=== PATIENT | male | born 1995 | race Caucasian/White ===

== ENCOUNTER 2016-10-29 00:11 | Emergency (ER) | payer SELFPAY ==
[2016-10-29 00:17] VITALS: BMI 23.0
[2016-10-29 00:18] VITALS: TEMP 98.4
--- NOTE | 2016-10-29 00:33 | ED PDOC ---
Arrival/HPI - General Chief Complaint: Trauma Time Seen by Provider: 10/29/16 00:25 Historian: Patient - History of Present Illness Narrative History of Present Illness (Text): 10/29/16 00:27 This 21 yo male is brought to this ED by BLS c/o right lower back pain, and right hip/ thigh pain x [employer]. Patient stated he slipped and [place] local [employer]. Denies head injury, loc, weakness, paresthesia, dizziness, syncope, sob, cp, or abnormal gait. Time/Duration: Prior to Arrival Quality: Aching Context: Other (supermarket.) Past Medical History - Provider Review Nursing Documentation Reviewed: Yes - Psychiatric Hx Substance Use: No Family/Social History - Physician Review Nursing Documentation Reviewed: Yes Family/Social History: No Known Family HX Smoking Status: no Hx Alcohol Use: No Hx Substance Use: No Allergies/Home Meds Allergies/Adverse Reactions: Allergies No Known Allergies Allergy (Verified 10/29/16 00:17) Review of Systems - Review of Systems Constitutional: Normal. absent: Fatigue, Weight Change, Fevers Eyes: Normal ENT: Normal Respiratory: Normal Cardiovascular: Normal Gastrointestinal: Normal. absent: Abdominal Pain, Nausea, Vomiting Genitourinary Male: Normal. absent: Dysuria, Hematuria Musculoskeletal: Normal, Other (Right hip, and right thigh pain). absent: Back Pain, Neck Pain Skin: Normal Neurological: Normal. absent: Headache, Dizziness, Focal Weakness, Gait Changes , Speech Changes, Facial Droop Endocrine: Normal Hemo/Lymphatic: Normal Psychiatric: Normal Physical Exam Vital Signs Temp Pulse Resp BP Pulse Ox 10/29/16 02:03 83 12 119/60 97 10/29/16 00:17 98.4 F 110 H 18 128/71 98 Temperature: Afebrile Blood Pressure: Normal Pulse: Regular Respiratory Rate: Normal Appearance: Positive for: Well-Appearing, Non-Toxic, Comfortable Pain Distress: None Mental Status: Positive for: Alert and Oriented X 3 - Systems Exam Head: Present: Atraumatic, Normocephalic, Other (no raccoon sign. no hanley sign) Pupils: Present: PERRL, Other (no hyphema) Extroacular Muscles: Present: EOMI Conjunctiva: Present: Normal Ears: Present: Normal, NORMAL TM, Normal Canal, Other (no hemotympanum). No: Erythema, TM Bulging, Fluid, TM Perf Mouth: Present: Moist Mucous Membranes Pharnyx: Present: Normal. No: ERYTHEMA, EXUDATE, TONSILS ENLARGED Nose (External): Present: Atraumatic Nose (Internal): Present: Normal Inspection Neck: Present: Normal Range of Motion. No: Meningeal Signs, MIDLINE TENDERNESS , Paraspinal Tenderness Respiratory/Chest: Present: Clear to Auscultation, Good Air Exchange. No: Respiratory Distress, Accessory Muscle Use, Tender to Palpation Cardiovascular: Present: Regular Rate and Rhythm, Normal S1, S2. No: Murmurs Abdomen: Present: Normal Bowel Sounds. No: Tenderness, Distention, Peritoneal Signs Back: Present: Normal Inspection. No: CVA Tenderness, Midline Tenderness, Paraspinal Tenderness Upper Extremity: Present: Normal Inspection, Normal ROM, NORMAL PULSES, Neurovascularly Intact, Capillary Refill < 2s. No: Cyanosis, Edema Lower Extremity: Present: Normal Inspection, NORMAL PULSES, Neurovascularly Intact, Capillary Refill < 2 s, Other (No ecchymosis, deformity, abrasion, or ecchymosis). No: Edema, CALF TENDERNESS, Normal ROM (mild tenderness right hip) Neurological: Present: GCS=15, CN II-XII Intact, Speech Normal Skin: Present: Warm, Dry, Normal Color. No: Rashes Psychiatric: Present: Alert, Oriented x 3, Normal Insight, Normal Concentration Medical Decision Making ED Course and Treatment: 10/29/16 00:36 Patient refused pain medication at this time. 10/29/16 01:40 Patient is requesting pain medication before discharge. Crutches was ordered Re-evaluation Time: 01:50 Reassessment Condition: Re-examined, Improved - RAD Interpretation Radiology Orders: 10/29/16 00:25 Hip Right [HIP MIN 2V W/ PELVIS RT] [RAD] Stat 10/29/16 00:26 Femur Right [FEMUR MIN 2 VIEWS RT] [RAD] Stat LS SPINE WITH OBL > 18 YRS OLD [RAD] Stat - Medication Orders Current Medication Orders: Discontinued Medications Diazepam (Valium) 2 mg PO STAT STA PRN Reason: Protocol Stop: 10/29/16 01:44 Last Admin: 10/29/16 02:02 Dose: 2 mg Ibuprofen (Motrin Tab) 600 mg PO STAT STA Stop: 10/29/16 01:45 Last Admin: 10/29/16 02:02 Dose: 600 mg Disposition/Present on Arrival - Present on Arrival Any Indicators Present on Arrival: No History of DVT/PE: No History of Uncontrolled Diabetes: No Urinary Catheter: No History of Decub. Ulcer: No History Surgical Site Infection Following: None - Disposition Have Diagnosis and Disposition been Completed?: Yes Diagnosis: Fall from slip, trip, or stumble, Hip pain, Thigh pain Disposition: HOME/ ROUTINE Disposition Time: 01:51 Patient Plan: Discharge Condition: GOOD Discharge Instructions (ExitCare): Fall Prevention (ED), Hip Pain (ED) Additional Instructions: Call private doctor for follow up visit in 1-2 days. Take medication as instructed with food. Return to emergency if symptoms worsen. Prescriptions: Methocarbamol [Robaxin-750] 750 mg PO TID #21 tab Naproxen [Naprosyn Tab] 375 mg PO BID #14 tab Referrals: [facility] [Outside] - Follow up with primary [facility] [Outside] - Follow up with primary [facility] Slade Peralta, [Non-Staff] - Follow up with primary Forms: WORK NOTE
[2016-10-29 02:03] VITALS: BP 119/60; PULSE 83; RESP 12; O2SAT 97
--- NOTE | 2016-10-29 08:36 | RAD ---
PROCEDURE: Radiographs of the Lumbar Spine. HISTORY: pain COMPARISON: No prior. FINDINGS: BONES: Normal alignment. No listhesis. No fracture. DISC SPACES: Unremarkable. OTHER FINDINGS: None. IMPRESSION: Unremarkable radiographs of the lumbar spine.
--- NOTE | 2016-10-29 08:46 | RAD ---
PROCEDURE: Right Hip and pelvis Radiographs. HISTORY: pain s/p fall COMPARISON: None. FINDINGS: BONES: Normal. No fracture. JOINTS: Normal. SOFT TISSUES: Normal. OTHER FINDINGS: None. IMPRESSION: Negative study
--- NOTE | 2016-10-29 08:47 | RAD ---
PROCEDURE: Right Femur Radiographs. HISTORY: pain COMPARISON: None. TECHNIQUE: AP and Lateral Radiographs of the right femur. FINDINGS: FEMUR: Normal. No fracture. SOFT TISSUES: Normal. OTHER FINDINGS: None. IMPRESSION: Unremarkable radiographs of the right femur.
== END 2016-10-29 02:21 | disposition home or self-care (01) ==
LOC: ED 00:11 → EROBSV 00:20 → UNDOADMOB 00:20 → ED 02:21
DX: M25.551 Pain in right hip (principal); M79.651 Pain in right thigh